=== PATIENT | female | born 1945 | race Caucasian/White ===

== ENCOUNTER 2018-05-27 09:42 | Inpatient (IN) | payer MEDICARE ==
[~2018-05-27] VITALS: Ht 175.3 cm; Wt 74.4 kg
[2018-05-27 10:41] LABS: CREATININE 0.9 mg/dL (0.5-1.5); POTASSIUM 4.7 mmol/L (3.5-5.1)
[2018-05-27 10:42] LABS: EOSINOPHILS % (AUTO) 4.3 % (0.0-8.0); HEMATOCRIT 26.6 % (36-48); LYMPHOCYTES % (AUTO) 27.8 % (21.0-51.0); MEAN CORPUSCULAR HEMOGLOBIN 21.3 pg (27.0-33.0); MEAN CORPUSCULAR HGB CONC 30.7 g/dL (32.0-36.0); MEAN CORPUSCULAR VOLUME 69.5 fL (79-99); MONOCYTES % (AUTO) 12.6 % (3.0-13.0); NEUTROPHILS % (AUTO) 54.3 % (40.0-77.0); PLATELET COUNT (AUTO) 621 K/uL (130-400); RED BLOOD CELL COUNT(AUTO) 3.83 MIL/uL (4.00-5.50); RED CELL DISTRIBUTION WIDTH 17.7 % (11.0-15.5); WHITE BLOOD COUNT (AUTO) 8.6 K/uL (4.8-10.8)
[2018-05-27 10:46] LABS: ALBUMIN 3.1 g/dL (3.5-5.0); BILIRUBIN,TOTAL 0.4 mg/dL (0.2-1.0); TOTAL PROTEIN, SERUM 6.9 g/dL (6.0-8.3)
[2018-05-27 11:13] LABS: B-TYPE NATRIURETIC PEPTIDE 461 pg/mL (0-100)
[2018-05-27] MEDS ORDERED: FUROSEMIDE 10 MG/ML 4ML VIAL ONE (12:06)
[2018-05-27] MEDS ORDERED: FUROSEMIDE 10 MG/ML 4ML VIAL IVP SCH (21:00)
[2018-05-27 21:03] VITALS: BP 127/61
[2018-05-27] MEDS ORDERED: AMLO5TAB7 PO (21:16)
[2018-05-27] MEDS ORDERED: GUAI-966 PO (21:16)
[2018-05-27] MEDS ORDERED: PARO25TA22 PO (21:16)
[2018-05-27] MEDS ORDERED: B12/1TAB PO (21:16)
[2018-05-27] MEDS ORDERED: AZIT250T9 PO (21:16)
[2018-05-27] MEDS ORDERED: FLUC100T8 PO (21:16)
[2018-05-27] MEDS ORDERED: NYST5ORA7 PO (21:16)
[2018-05-27] MEDS ORDERED: ASPI-1197 PO (21:16)
[2018-05-27] MEDS ORDERED: UBID30CA11 PO (21:16)
[2018-05-27 23:51] VITALS: BP 119/71
[2018-05-28 01:07] LABS: CREATINE KINASE, TOTAL 42 U/L (21-232); MYOGLOBIN 65 ng/mL (10-92); TROPONIN I < 0.04 ng/mL (0.00-0.06)
[2018-05-28 03:44] VITALS: BP 132/68
[2018-05-28 07:47] VITALS: BP 130/74
[2018-05-28 09:29] LABS: CREATINE KINASE, TOTAL 46 U/L (21-232); MYOGLOBIN 93 ng/mL (10-92); TROPONIN I < 0.04 ng/mL (0.00-0.06)
[2018-05-28] MEDS ORDERED: MAG HYDROX/AL HYDROX/SIMETH ES 30 ML SUSP UDCUP PO PRN (11:15)
[2018-05-28] MEDS ORDERED: MAGNESIUM HYDROXIDE 30 ML/UDCUP PO PRN (11:15)
[2018-05-28] MEDS ORDERED: FAMOTIDINE 20MG TAB 20 MG TAB PO SCH (11:15)
[2018-05-28 11:47] VITALS: BP 103/58
[2018-05-28 16:01] VITALS: BP 106/63
[2018-05-28 19:00] VITALS: BP 124/68
[2018-05-28] MEDS: FAMOTIDINE 20MG TAB 20 MG TAB PO SCH (20:15)
[2018-05-28 23:00] VITALS: BP 130/68
[2018-05-29 03:00] VITALS: BP 118/60
[2018-05-29 07:30] VITALS: BP 108/65
[2018-05-29] MEDS: FAMOTIDINE 20MG TAB 20 MG TAB PO SCH ×2 (08:28→20:46)
[2018-05-29] MEDS: FLUCONAZOLE 100 MG TAB PO SCH (08:28)
[2018-05-29] MEDS: ASPIRIN 81MG TAB.CHEW PO SCH (08:28)
[2018-05-29] MEDS: FUROSEMIDE 40 MG TABLET PO SCH (08:28)
[2018-05-29] MEDS: CARVEDILOL 3.125 MG TABLET PO SCH ×2 (08:32→20:46)
[2018-05-29] MEDS: PAXIL 25 MG PO SCH (08:35)
[2018-05-29] MEDS: LOSARTAN 50 MG TABLET PO SCH (09:00)
[2018-05-29] MEDS ORDERED: AZITHROMYCIN 250 MG TABLET PO SCH (09:00)
[2018-05-29] MEDS ORDERED: AMLODIPINE BESYLATE 5 MG TAB PO SCH (09:00)
[2018-05-29] MEDS: B6 PO SCH (09:00)
[2018-05-29] MEDS: B12 PO SCH (09:00)
[2018-05-29] MEDS: LEVOMEFOLATE CALCIUM PO SCH (09:00)
[2018-05-29] MEDS ORDERED: PAROXETINE HCL 25 MG TAB.SR.24H PO SCH (09:00)
[2018-05-29] MEDS: UBIDECARENONE 30 MG PO SCH (09:00)
[2018-05-29 11:28] VITALS: BP 96/58
[2018-05-29] MEDS: WARFARIN SODIUM 5 MG TAB PO SCH (15:49)
[2018-05-29 16:09] VITALS: BP 111/54
[2018-05-29 19:43] VITALS: BP 114/71
[2018-05-29 23:44] VITALS: BP 110/63
[2018-05-30] VITALS (7 sets, daily range): BP systolic 91–106; BP diastolic 45–63
[2018-05-30 04:08] LABS: INR 0.95 (0.85-1.15)
[2018-05-30 04:19] LABS: CREATININE 0.9 mg/dL (0.5-1.5); POTASSIUM 3.8 mmol/L (3.5-5.1)
[2018-05-30] MEDS: LEVOMEFOLATE CALCIUM PO SCH (09:00)
[2018-05-30] MEDS: UBIDECARENONE 30 MG PO SCH (09:00)
[2018-05-30] MEDS: PAXIL 25 MG PO SCH (09:00)
[2018-05-30] MEDS: LOSARTAN 50 MG TABLET PO SCH (09:00)
[2018-05-30] MEDS: B12 PO SCH (09:00)
[2018-05-30] MEDS: B6 PO SCH (09:00)
[2018-05-30] MEDS: CARVEDILOL 3.125 MG TABLET PO SCH ×2 (09:51→21:58)
[2018-05-30] MEDS ORDERED: REGADENOSON 0.4 MG/5 ML PF SYG IVP SCH (10:45)
[2018-05-30] MEDS: FLUCONAZOLE 100 MG TAB PO SCH (17:11)
[2018-05-30] MEDS: WARFARIN SODIUM 5 MG TAB PO SCH (17:11)
[2018-05-30] MEDS: FAMOTIDINE 20MG TAB 20 MG TAB PO SCH ×2 (17:11→19:05)
[2018-05-30] MEDS: FUROSEMIDE 40 MG TABLET PO SCH (17:12)
[2018-05-30] MEDS: ASPIRIN 81MG TAB.CHEW PO SCH (17:12)
[2018-05-31 03:24] VITALS: BP 100/48
[2018-05-31 03:47] LABS: INR 1.2 (0.85-1.15); PROTHROMBIN TIME 12.6 SEC (9.6-11.6)
[2018-05-31 03:48] LABS: POTASSIUM 4.8 mmol/L (3.5-5.1)
[2018-05-31 07:48] VITALS: BP 128/42
[2018-05-31] MEDS: PAXIL 25 MG PO SCH (09:00)
[2018-05-31] MEDS: B12 PO SCH (09:00)
[2018-05-31] MEDS: UBIDECARENONE 30 MG PO SCH (09:00)
[2018-05-31] MEDS: LEVOMEFOLATE CALCIUM PO SCH (09:00)
[2018-05-31] MEDS: B6 PO SCH (09:00)
[2018-05-31] MEDS: CARVEDILOL 3.125 MG TABLET PO SCH ×2 (09:02→21:14)
[2018-05-31] MEDS: ASPIRIN 81MG TAB.CHEW PO SCH (09:02)
[2018-05-31] MEDS: FLUCONAZOLE 100 MG TAB PO SCH (09:02)
[2018-05-31] MEDS: FAMOTIDINE 20MG TAB 20 MG TAB PO SCH ×2 (09:02→21:14)
[2018-05-31] MEDS: FUROSEMIDE 40 MG TABLET PO SCH (09:03)
[2018-05-31 11:42] VITALS: BP 119/73
[2018-05-31] MEDS: LOSARTAN 50 MG TABLET PO SCH (12:18)
[2018-05-31] MEDS: WARFARIN SODIUM 5 MG TAB PO SCH (16:04)
[2018-05-31 16:37] VITALS: BP 100/55
[2018-05-31 19:39] VITALS: BP 121/71
[2018-05-31 23:37] VITALS: BP 116/63
[2018-06-01 04:01] VITALS: BP 104/56
[2018-06-01 04:35] LABS: CREATININE 0.9 mg/dL (0.5-1.5); POTASSIUM 3.6 mmol/L (3.5-5.1)
[2018-06-01 04:44] LABS: INR 2.02 (0.85-1.15); PROTHROMBIN TIME 20.9 SEC (9.6-11.6)
[2018-06-01 07:37] VITALS: BP 97/51
[2018-06-01] MEDS: B6 PO SCH (09:00)
[2018-06-01] MEDS: B12 PO SCH (09:00)
[2018-06-01] MEDS: UBIDECARENONE 30 MG PO SCH (09:00)
[2018-06-01] MEDS: LEVOMEFOLATE CALCIUM PO SCH (09:00)
[2018-06-01] MEDS: FLUCONAZOLE 100 MG TAB PO SCH (09:21)
[2018-06-01] MEDS: CARVEDILOL 3.125 MG TABLET PO SCH (09:22)
[2018-06-01] MEDS: FAMOTIDINE 20MG TAB 20 MG TAB PO SCH (09:22)
[2018-06-01] MEDS: ASPIRIN 81MG TAB.CHEW PO SCH (09:22)
[2018-06-01] MEDS: FUROSEMIDE 40 MG TABLET PO SCH (09:22)
[2018-06-01] MEDS: LOSARTAN 50 MG TABLET PO SCH (09:23)
[2018-06-01] MEDS: PAXIL 25 MG PO SCH (09:28)
[2018-06-01 11:22] VITALS: BP 103/57
[2018-06-01 16:44] VITALS: BP 105/60
[2018-06-01] MEDS: WARFARIN SODIUM 5 MG TAB PO SCH (16:44)
== END 2018-06-01 18:05 | disposition home or self-care (01) | DRG 291 ==
LOC: EDH 09:42 → OBSVTOIN 12:30 → EDHIP 12:30 → 2AH 20:39
PROVIDERS: ADMIT Internal Medicine Critical Care Medicine; ATTEND Internal Medicine Critical Care Medicine
DX: I11.0 Hypertensive heart disease with heart failure (principal); J96.01 Acute respiratory failure with hypoxia; I50.23 Acute on chronic systolic (congestive) heart failure; I42.0 Dilated cardiomyopathy; I09.9 Rheumatic heart disease, unspecified; E78.5 Hyperlipidemia, unspecified; Z72.0 Tobacco use; D50.9 Iron deficiency anemia, unspecified; F41.8 Other specified anxiety disorders; Z79.01 Long term (current) use of anticoagulants; Z88.1 Allergy status to other antibiotic agents; Z91.048 Other nonmedicinal substance allergy status; Z98.84 Bariatric surgery status
CPT/HCPCS: 36415; 71046; 71250; 78452; 80048; 80053; 80061; 82550; 83874; 83880; 84443; 84484; 85025; 85610; 86850; 86900; 86901; 93017; 93306; 96374; A9500; J1940; J2785

== ENCOUNTER 2018-06-13 13:27 | Observation (INO) | payer MEDICARE ==
[~2018-06-13] VITALS: Ht 175.3 cm; Wt 76.7 kg
[~2018-06-13 13:27] MED LIST: B12/1TAB PO; GUAI-966 PO; NYST5ORA7 PO; PARO25TA22 PO; UBID30CA11 PO
[2018-06-13 16:02] LABS: BASOPHILS % (AUTO) 0.9 % (0.0-5.0); EOSINOPHILS % (AUTO) 1.4 % (0.0-8.0); LYMPHOCYTES % (AUTO) 20.5 % (21.0-51.0); MEAN CORPUSCULAR HEMOGLOBIN 21.7 pg (27.0-33.0); MEAN CORPUSCULAR HGB CONC 30.7 g/dL (32.0-36.0); MEAN CORPUSCULAR VOLUME 70.7 fL (79-99); MONOCYTES % (AUTO) 11.1 % (3.0-13.0); NEUTROPHILS % (AUTO) 66.1 % (40.0-77.0); NUCLEATED RED BLOOD CELLS 0.1 % (0.0-0.19); PLATELET COUNT (AUTO) 556 K/uL (130-400); RED BLOOD CELL COUNT(AUTO) 4.24 MIL/uL (4.00-5.50); RED CELL DISTRIBUTION WIDTH 17.7 % (11.0-15.5); WHITE BLOOD COUNT (AUTO) 8.4 K/uL (4.8-10.8)
[2018-06-13 17:58] LABS: CREATININE 0.8 mg/dL (0.5-1.5); POTASSIUM 3.7 mmol/L (3.5-5.1)
[2018-06-13 17:59] LABS: INR 1.96 (0.85-1.15); PARTIAL THROMBOPLASTIN TIME 36.2 SEC (26.3-35.5); PROTHROMBIN TIME 20.3 SEC (9.6-11.6)
[2018-06-13 18:03] LABS: ALBUMIN 3.2 g/dL (3.5-5.0); BILIRUBIN,TOTAL 0.2 mg/dL (0.2-1.0); TOTAL PROTEIN, SERUM 6.8 g/dL (6.0-8.3)
[2018-06-13 19:00] VITALS: BP 99/40
[2018-06-13] MEDS ORDERED: CARV3.12 PO (22:23)
[2018-06-13] MEDS ORDERED: WARF2.5T85 PO (22:23)
[2018-06-13] MEDS ORDERED: FURO40TA5 PO (22:23)
[2018-06-13] MEDS ORDERED: SACU1TAB PO (22:23)
[2018-06-13 23:30] VITALS: BP 111/60
[2018-06-14 03:47] VITALS: BP 96/46
[2018-06-14 08:00] VITALS: BP 116/61
[2018-06-14] MEDS: FUROSEMIDE 40 MG TABLET PO SCH (08:50)
[2018-06-14] MEDS: CARVEDILOL 3.125 MG TABLET PO SCH ×2 (08:53→21:03)
[2018-06-14] MEDS: WARFARIN SODIUM 2.5 MG TAB PO SCH (08:55)
[2018-06-14] MEDS: PAXIL 25 MG PO SCH (09:00)
[2018-06-14] MEDS ORDERED: PAROXETINE HCL 25 MG TAB.SR.24H PO SCH (09:00)
[2018-06-14 12:00] VITALS: BP 96/43
[2018-06-14 16:00] VITALS: BP 118/54
[2018-06-14 20:00] VITALS: BP 103/58
[2018-06-15 00:37] VITALS: BP 97/46
[2018-06-15 04:13] VITALS: BP 105/57
[2018-06-15 08:22] VITALS: BP 123/61
[2018-06-15] MEDS: PAXIL 25 MG PO SCH (09:00)
[2018-06-15] MEDS: FUROSEMIDE 40 MG TABLET PO SCH (09:15)
[2018-06-15] MEDS: WARFARIN SODIUM 2.5 MG TAB PO SCH (09:16)
[2018-06-15] MEDS: CARVEDILOL 3.125 MG TABLET PO SCH (09:16)
[2018-06-16 08:26] VITALS: BP 121/56
== END 2018-06-15 12:05 | disposition home or self-care (01) ==
LOC: EDH 13:27 → EDHIP 16:40 → 3AH 18:24
PROVIDERS: ADMIT Internal Medicine Critical Care Medicine; ATTEND Internal Medicine Critical Care Medicine
DX: R55 Syncope and collapse (principal); I50.22 Chronic systolic (congestive) heart failure; I42.9 Cardiomyopathy, unspecified; D50.9 Iron deficiency anemia, unspecified; I48.2 Chronic atrial fibrillation; G47.10 Hypersomnia, unspecified; Z79.01 Long term (current) use of anticoagulants; Z90.710 Acquired absence of both cervix and uterus; Z98.84 Bariatric surgery status
CPT/HCPCS: 36415; 71045; 80053; 82270; 82550; 84484; 85025; 85610; 85730; 93005; 99285; G0378 ×43

== ENCOUNTER → 2018-09-24 | Outpatient (CLI) | payer MEDICARE ==
[~2018-09-24] MED LIST changes: +CARV3.12 PO; +FURO40TA5 PO; +SACU1TAB PO; +WARF2.5T85 PO
== END | disposition home or self-care (01) ==
LOC: SHCH 08:12
PROVIDERS: ATTEND Internal Medicine Cardiovascular Disease
DX: I34.0 Nonrheumatic mitral (valve) insufficiency (principal); I42.9 Cardiomyopathy, unspecified
CPT/HCPCS: 93306

== ENCOUNTER 2018-10-03 20:38 | Emergency (ER) | payer MEDICARE ==
[2018-10-03 21:25] LABS: BASOPHILS % (AUTO) 1.2 % (0.0-5.0); EOSINOPHILS % (AUTO) 2.8 % (0.0-8.0); HEMATOCRIT 41.8 % (36-48); LYMPHOCYTES % (AUTO) 14.7 % (21.0-51.0); MEAN CORPUSCULAR HEMOGLOBIN 29.2 pg (27.0-33.0); MEAN CORPUSCULAR VOLUME 88.6 fL (79-99); MONOCYTES % (AUTO) 11.3 % (3.0-13.0); PLATELET COUNT (AUTO) 371 K/uL (130-400); RED BLOOD CELL COUNT(AUTO) 4.72 MIL/uL (4.00-5.50); RED CELL DISTRIBUTION WIDTH 13.6 % (11.0-15.5); WHITE BLOOD COUNT (AUTO) 10.6 K/uL (4.8-10.8)
[2018-10-03] MEDS ORDERED: ONDANSETRON HCL 4 MG/2 ML VIAL ONE (21:29)
[2018-10-03] MEDS ORDERED: SODIUM CHLORIDE 0.9% 1000ML 1,000 ML IV ONE (21:29)
[2018-10-03] MEDS ORDERED: KETOROLAC TROMETHAMINE 30MG/ML ONE (21:30)
[2018-10-03 21:34] LABS: CARBON DIOXIDE 27 mmol/L (21-32); CHLORIDE 103 mmol/L (101-111); GLOMERULAR FILTR. RATE CALC 58 mL/min (>60); GLUCOSE,RANDOM 115 mg/dL (70-105); POTASSIUM 4.1 mmol/L (3.5-5.1); SODIUM SERUM 140 mmol/L (136-145); UREA NITROGEN, BLOOD 24 mg/dL (7-18)
[2018-10-03 21:38] LABS: ALANINE AMINOTRANSFERASE 22 U/L (12-78); ALBUMIN 3.5 g/dL (3.5-5.0); ASPARTATE AMINOTRANSFERASE 26 U/L (10-37); BILIRUBIN,DIRECT < 0.1 mg/dL (0.0-0.3); BILIRUBIN,TOTAL 0.2 mg/dL (0.2-1.0); CREATINE KINASE, TOTAL 59 U/L (21-232); TOTAL PROTEIN, SERUM 7.6 g/dL (6.0-8.3)
[2018-10-03] MEDS ORDERED: DEXAMETHASONE SOD PHOSPHATE 10MG/ML 1ML VIAL ONE (22:32)
[2018-10-03] MEDS ORDERED: DIAZEPAM 5 MG TABLET ONE (22:33)
[2018-10-03 22:48] LABS: APPEARANCE,URINE Turbid (CLEAR); BILIRUBIN,URINE Negative (NEGATIVE); COLOR,URINE Yellow (YELLOW); GLUCOSE, URINE (UA) Negative (NEGATIVE); KETONES,URINE Trace mg/dL (NEGATIVE); LEUKOCYTE ESTERASE ,URINE Negative (NEGATIVE); NITRATE,URINE Negative (NEGATIVE); OCCULT BLOOD,URINE Nonhemolyzed Trace (NEGATIVE); PH,URINE 6.5 (5.0-8.0); PROTEIN,URINE Negative (NEGATIVE); UROBILINOGEN,URINE 0.2 mg/dL (0.2-1.0)
[2018-10-03 22:58] LABS: BACTERIA,URINE None Seen /HPF (None Seen); SQUAMOUS EPITHELIAL CELL,UR Rare /HPF (0-2); WBC,URINE None Seen /HPF (0-1)
== END 2018-10-03 23:39 | disposition home or self-care (01) ==
LOC: EDH 20:38
DX: J10.1 Influenza due to other identified influenza virus with other respiratory manifestations (principal); R42 Dizziness and giddiness; R51 Headache; M54.2 Cervicalgia; I10 Essential (primary) hypertension; Z90.49 Acquired absence of other specified parts of digestive tract; Z90.710 Acquired absence of both cervix and uterus; Z88.2 Allergy status to sulfonamides; Z91.048 Other nonmedicinal substance allergy status
CPT/HCPCS: 36415; 70450; 71045; 72125; 80048; 80076; 81001; 82550; 84484; 85025; 87804 ×2; 93005; 96374; 96375; 99284; J1100; J1885; J2405; J7030

== ENCOUNTER 2018-10-30 05:50 | Observation (INO) | payer MEDICARE ==
[2018-10-28 13:18] LABS: BASOPHILS % (AUTO) 1.2 % (0.0-5.0); EOSINOPHILS % (AUTO) 4.4 % (0.0-8.0); HEMATOCRIT 40.4 % (36-48); LYMPHOCYTES % (AUTO) 30.4 % (21.0-51.0); MEAN CORPUSCULAR HEMOGLOBIN 30.2 pg (27.0-33.0); MEAN CORPUSCULAR HGB CONC 32.7 g/dL (32.0-36.0); MEAN CORPUSCULAR VOLUME 92.2 fL (79-99); PLATELET COUNT (AUTO) 391 K/uL (130-400); RED BLOOD CELL COUNT(AUTO) 4.38 MIL/uL (4.00-5.50); RED CELL DISTRIBUTION WIDTH 14.5 % (11.0-15.5); WHITE BLOOD COUNT (AUTO) 4.9 K/uL (4.8-10.8)
[2018-10-28 13:37] LABS: INR 1.53 (0.85-1.15); PARTIAL THROMBOPLASTIN TIME 35.4 SEC (26.3-35.5); PROTHROMBIN TIME 15.9 SEC (9.6-11.6)
[2018-10-28 13:38] VITALS: BP 137/69
[2018-10-28 13:48] LABS: CREATININE 0.9 mg/dL (0.5-1.5); POTASSIUM 4.6 mmol/L (3.5-5.1)
--- NOTE | 2018-10-29 12:28 | NUR ---
NOTE REPORTED PT/INR TO CECI MURGUIA TO PROCEED NO ORDERS TO REPEAT
[2018-10-30] VITALS (11 sets, daily range): BP systolic 73–139; BP diastolic 39–71
[~2018-10-30] VITALS: Ht 172.7 cm; Wt 85.4 kg
[~2018-10-30 05:50] MED LIST changes: -B12/1TAB PO; -CARV3.12 PO; -GUAI-966 PO; +LOSA25TA41 PO; -NYST5ORA7 PO; +PROG100C6 PO; -UBID30CA11 PO; +WARF-57 PO; -WARF2.5T85 PO
[2018-10-30] MEDS ORDERED: SODIUM CHLORIDE 0.9% 1000ML 1,000 ML IV ONE (06:13)
--- NOTE | 2018-10-30 06:54 | NUR ---
PROCEDURE PT HERE FOR PROCEDURE. DENIES ANY DISCOMFORTS AT THIS TIME. LIFEVEST IN PLACE.
--- NOTE | 2018-10-30 07:17 | NUR ---
SKIN RAISED SMALL BUMPS, REDNESS NOTED TO LEFT NECK. PT STATES SHE RECEIVED FROM STRAP FROM [facility]. NO DRAINAGE NOTED.
[2018-10-30] MEDS ORDERED: SODIUM CHLORIDE 0.9% 1000ML 1,000 ML IV SCH (08:00)
[2018-10-30] MEDS ORDERED: CEFAZOLIN SODIUM 1 GM VIAL IVP ONE (08:00)
[2018-10-30] MEDS ORDERED: LIDOCAINE HCL 1% MDV 50ML VIAL ONE (09:08)
[2018-10-30] MEDS ORDERED: BUPIVACAINE/PF 0.25% 30ML VIAL IJ ONE (09:08)
[2018-10-30] MEDS ORDERED: CEFAZOLIN SODIUM 1 GM VIAL ONE (09:08)
[2018-10-30] MEDS ORDERED: MIDAZOLAM HCL 1 MG/ML 2ML VIAL ONE ×4 (09:26→10:19)
[2018-10-30] MEDS ORDERED: MEPERIDINE-PF 25 MG/ML SYG ONE ×4 (09:26→10:19)
--- NOTE | 2018-10-30 09:46 | NUR ---
PROCEDURE PT TAKEN TO PROCEDURE VIA BED BY SPLICING MACHINE OPERATOR STAFF STEPHANIE LR. LIFEVEST IN PLACE
[2018-10-30] MEDS ORDERED: IOHEXOL-350 50ML VIAL IV ONE (10:21)
[2018-10-30] MEDS ORDERED: AMIODARONE HCL 50 MG/ML 3 ML VIAL ONE (11:02)
[2018-10-30] MEDS ORDERED: ACETAMINOPHEN-CODEINE 300/30MG TAB PO PRN ×2 (11:45)
[2018-10-30] MEDS ORDERED: ACETAMINOPHEN 325 MG TAB PO PRN (11:45)
--- NOTE | 2018-10-30 12:10 | NUR ---
ARRIVAL TO ROOM 229 PT IS AAOX3, AROUSABLE TO NAME AND ANSWERS QUESTIONS. NOTED LEFT UPPER CHEST DRESSING IN PLACE, CLEAN DRY AND INTACT. LEFT ARM SLING IN PLACE. BEDREST IN PROGRESS. HOB UP AT 30 DEGREES. NO VISIBLE SIGNS OF DISTRESS NOTED, BREATHING PATTERN IS EVEN AND UNLABORED. CALL LIGHT WITHIN REACH.
--- NOTE | 2018-10-30 13:00 | NUR ---
DR COLE AWARE OF ADMISSION TO ROOM 229
--- NOTE | 2018-10-30 14:00 | NUR ---
HR VIA TELE PERSONNEL OFFICER A-PACED 68.
--- NOTE | 2018-10-30 14:00 | NUR ---
STATUS PT IS AAOX4, RESTING IN BED. LEFT UPPER CHEST DRESSING REMAINS CLEAN DRY AND INTACT. NO COMPLAINTS. FAMILY IS AT BEDSIDE.
--- NOTE | 2018-10-30 16:00 | NUR ---
UP TO RESTROOM WITH ASSISTANCE TOLERATED WELL NO COMPLAINTS, BACK TO BED CALL LIGHT WITHIN REACH.
[2018-10-30] MEDS ORDERED: WARFARIN SODIUM 5 MG TAB PO SCH (17:00)
--- NOTE | 2018-10-30 21:00 | NUR ---
PT IS STABLE. DRESSING TO LEFT SIDE OF CHEST. SLING IN PLACE. AAOX3. PERRLA. NO PAIN STATED BUT DOES HAVE MINIMAL SORENESS TO AREA. STATED FEELING ITCHY IN HER NECK AREA DUE TO SLING AND ALSO LIFEVEST. APPLIED CREAM TO REDUCE DISCOMFORT. APPLIED HEATING PADS TO DRESSING SITE.
[2018-10-31 07:00] VITALS: BP 132/73
[2018-10-31 07:02] LABS: BASOPHILS % (AUTO) 0.9 % (0.0-5.0); EOSINOPHILS % (AUTO) 7.5 % (0.0-8.0); HEMATOCRIT 39.6 % (36-48); LYMPHOCYTES % (AUTO) 25.6 % (21.0-51.0); MEAN CORPUSCULAR HEMOGLOBIN 30.2 pg (27.0-33.0); MEAN CORPUSCULAR HGB CONC 33.2 g/dL (32.0-36.0); MEAN CORPUSCULAR VOLUME 90.9 fL (79-99); MONOCYTES % (AUTO) 13.6 % (3.0-13.0); NEUTROPHILS % (AUTO) 52.4 % (40.0-77.0); PLATELET COUNT (AUTO) 291 K/uL (130-400); RED BLOOD CELL COUNT(AUTO) 4.36 MIL/uL (4.00-5.50); RED CELL DISTRIBUTION WIDTH 14.2 % (11.0-15.5); WHITE BLOOD COUNT (AUTO) 5.8 K/uL (4.8-10.8)
[2018-10-31] MEDS ORDERED: CARV3.12 PO (07:07)
[2018-10-31 07:14] LABS: CREATININE 0.8 mg/dL (0.5-1.5); POTASSIUM 4.7 mmol/L (3.5-5.1)
[2018-10-31] MEDS ORDERED: PAROXETINE HCL 25 MG TAB.SR.24H PO SCH (09:00)
[2018-10-31] MEDS ORDERED: **HM** ENTRESTO 24-26MG PO SCH (09:00)
[2018-10-31] MEDS ORDERED: LOSARTAN 50 MG TABLET PO SCH (09:00)
[2018-10-31] MEDS ORDERED: FUROSEMIDE 40 MG TABLET PO SCH (09:00)
[2018-10-31] MEDS ORDERED: PAXIL 25 MG PO SCH (09:00)
--- NOTE | 2018-10-31 10:22 | NUR ---
REPORTED CHEST XRAY RESULT TO DR. ESPARZA. FAXED COPY OF RESULTS TO [facility] OFFICE.
--- NOTE | 2018-10-31 12:18 | NUR ---
DISCHARGE INSTRUCTIONS/INFORMATION GIVEN TO PATIENT. NEW PRESCRIPTION FOR COREG WAS HANDED TO HER. TEACH BACK METHOD USED TO EDUCATE PATIENT ON DIET, ACTIVITY RESTRICTIONS, USE OF SLING, CHANGES TO MEDICATIONS, AND F/U APPOINTMENT. PATIENT AND AT BEDSIDE BOTH VERBALIZED UNDERSTANDING. PIV REMOVED. TELE BATOOL REMOVED AND RETURNED. AICD TEMPORARY CARD AND BOOKLET GIVEN TO PATIENT. ALL BELONGINGS WERE PACKED.
[2018-10-31] MEDS ORDERED: PROGESTERONE 100 MG PO SCH (21:00)
== END 2018-10-31 12:43 | disposition home or self-care (01) ==
LOC: DAH 05:50 → DAHIP 05:51 → 2AH 12:17
PROVIDERS: ADMIT Internal Medicine; ATTEND Internal Medicine
DX: I42.0 Dilated cardiomyopathy (principal); I73.9 Peripheral vascular disease, unspecified; I50.22 Chronic systolic (congestive) heart failure; Z79.899 Other long term (current) drug therapy; Z90.710 Acquired absence of both cervix and uterus; Z88.2 Allergy status to sulfonamides
CPT/HCPCS: 33249; 36415 ×2; 71045; 80048 ×2; 85025 ×2; 85610; 85730; 93005; A4606; C1721; C1769; C1895 ×2; G0378 ×31; J0282; J0690; J2175 ×4; J2250 ×4; J3490 ×2; J7030; Q9967; 99156; 99157

== ENCOUNTER → 2022-11-16 | Outpatient (CLI) | payer MEDICARE ==
[~2022-11-16] MED LIST changes: +AMIO200T68 PO; +ASPI-556 PO; +CARV3.12 PO; -LOSA25TA41 PO; -PROG100C6 PO; -SACU1TAB PO; +SACU1TAB4 PO; -WARF-57 PO
== END | disposition home or self-care (01) ==
LOC: RAH 11:02
PROVIDERS: ATTEND Internal Medicine
DX: R20.0 Anesthesia of skin (principal)
CPT/HCPCS: 73630

== ENCOUNTER 2022-12-24 02:16 | Emergency (ER) | payer MEDICARE ==
[~2022-12-24] VITALS: Ht 175.3 cm; Wt 78.0 kg
[2022-12-24 03:20] LABS: BASOPHILS % (AUTO) 0.6 % (0.0-5.0); EOSINOPHILS % (AUTO) 4.3 % (0.0-8.0); HEMATOCRIT 38.1 % (36-48); LYMPHOCYTES % (AUTO) 30.8 % (21.0-51.0); MEAN CORPUSCULAR HEMOGLOBIN 30.1 pg (27.0-33.0); MEAN CORPUSCULAR VOLUME 94.1 fL (79-99); MONOCYTES % (AUTO) 16.2 % (3.0-13.0); NEUTROPHILS % (AUTO) 47.8 % (40.0-77.0); PLATELET COUNT (AUTO) 335 K/uL (130-400); RED BLOOD CELL COUNT(AUTO) 4.05 MIL/uL (4.00-5.50); RED CELL DISTRIBUTION WIDTH 14.4 % (11.0-15.5); WHITE BLOOD COUNT (AUTO) 6.3 K/uL (4.8-10.8)
[2022-12-24 03:24] LABS: APPEARANCE,URINE CLEAR (CLEAR); BILIRUBIN,URINE NEGATIVE (NEGATIVE); COLOR,URINE LIGHT-YELLOW (YELLOW); GLUCOSE, URINE (UA) NEGATIVE (NEGATIVE); KETONES,URINE NEGATIVE (NEGATIVE); LEUKOCYTE ESTERASE ,URINE 75 Leu/uL (NEGATIVE); NITRATE,URINE NEGATIVE (NEGATIVE); OCCULT BLOOD,URINE NEGATIVE (NEGATIVE); PH,URINE 5.5 (5.0-8.0); PROTEIN,URINE NEGATIVE (NEGATIVE); UROBILINOGEN,URINE 0.2 mg/dL (0.2-1.0)
[2022-12-24 03:26] LABS: CREATININE 0.8 mg/dL (0.5-1.5); POTASSIUM 4.8 mmol/L (3.5-5.1)
[2022-12-24 03:31] LABS: ALBUMIN 2.9 g/dL (3.5-5.0); TOTAL PROTEIN, SERUM 6.4 g/dL (6.0-8.3)
[2022-12-24 03:39] LABS: BACTERIA,URINE RARE /HPF (None Seen); MUCUS,URINE RARE LPF (None Seen); RBC,URINE 0-1 /HPF (0-1); SQUAMOUS EPITHELIAL CELL,UR RARE /HPF (0-2)
[2022-12-24] MEDS ORDERED: IOHEXOL 350 MG/ML 100ML INFUS..BTL IV ONE (03:55)
[2022-12-24 04:09] LABS: B-TYPE NATRIURETIC PEPTIDE 105 pg/mL (0-100)
[2022-12-24 04:30] LABS: INR 0.99 (0.85-1.15); PROTHROMBIN TIME 10.8 SEC (9.6-11.6)
[2022-12-24 04:32] LABS: PARTIAL THROMBOPLASTIN TIME 31.1 SEC (26.3-35.5)
[2022-12-24 05:36] VITALS: BP 116/62
== END 2022-12-24 05:54 | disposition home or self-care (01) ==
LOC: EDH 02:16
DX: S00.531A Contusion of lip, initial encounter (principal); Z79.82 Long term (current) use of aspirin; Z79.899 Other long term (current) drug therapy; Z98.890 Other specified postprocedural states; Z90.710 Acquired absence of both cervix and uterus; Z90.49 Acquired absence of other specified parts of digestive tract; Z95.810 Presence of automatic (implantable) cardiac defibrillator; Z88.2 Allergy status to sulfonamides; Z88.8 Allergy status to other drugs, medicaments and biological substances; W18.39XA Other fall on same level, initial encounter; Y93.89 Activity, other specified; Y92.89 Other specified places as the place of occurrence of the external cause; Y99.8 Other external cause status
CPT/HCPCS: 99285; 70450; 84484; 80053; 83880; 85025; 85610; 85730; 87088; 81001; 36415; 72125; 71270; 74178; 93005; Q9967

== ENCOUNTER → 2023-01-31 | Outpatient (CLI) | payer MEDICARE ==
[2023-01-31 12:13] LABS: APPEARANCE,URINE CLEAR (CLEAR); BILIRUBIN,URINE NEGATIVE (NEGATIVE); COLOR,URINE COLORLESS (YELLOW); GLUCOSE, URINE (UA) NEGATIVE (NEGATIVE); KETONES,URINE NEGATIVE (NEGATIVE); LEUKOCYTE ESTERASE ,URINE 25 Leu/uL (NEGATIVE); NITRATE,URINE NEGATIVE (NEGATIVE); OCCULT BLOOD,URINE NEGATIVE (NEGATIVE); PROTEIN,URINE NEGATIVE (NEGATIVE); UROBILINOGEN,URINE 0.2 mg/dL (0.2-1.0)
[2023-01-31 12:39] LABS: MUCUS,URINE RARE LPF (None Seen); RBC,URINE 0-1 /HPF (0-1)
== END | disposition home or self-care (01) ==
LOC: LAB 11:19
PROVIDERS: ATTEND Internal Medicine Cardiovascular Disease
DX: N39.0 Urinary tract infection, site not specified (principal)
CPT/HCPCS: 81001

== ENCOUNTER → 2023-04-29 | Outpatient (CLI) | payer MEDICARE ==
[~2023-04-29] MED LIST changes: +IOHEXOL 350 MG/ML 100ML INFUS..BTL IV ONE
== END | disposition home or self-care (01) ==
LOC: RAH 07:35
PROVIDERS: ATTEND Urology
DX: R31.9 Hematuria, unspecified (principal)
CPT/HCPCS: 74178; Q9967

== ENCOUNTER → 2023-06-25 | Outpatient (CLI) | payer MEDICARE ==
[~2023-06-25] MED LIST changes: -IOHEXOL 350 MG/ML 100ML INFUS..BTL IV ONE
[2023-06-25 12:16] LABS: BASOPHILS # (AUTO) 0.05 K/uL (0.00-0.20); BASOPHILS % (AUTO) 0.8 % (0.0-5.0); EOSINOPHILS # (AUTO) 0.18 K/uL (0.00-0.70); EOSINOPHILS % (AUTO) 2.9 % (0.0-8.0); HEMATOCRIT 40.5 % (36-48); IMMATURE GRANULOCYTE ABSOLUTE 0.02 K/uL (0-1); LYMPHOCYTES # (AUTO) 1.8 K/uL (1.0-4.8); LYMPHOCYTES % (AUTO) 28.3 % (21.0-51.0); MEAN CORPUSCULAR HEMOGLOBIN 30.5 pg (27.0-33.0); MEAN CORPUSCULAR HGB CONC 31.1 g/dL (32.0-36.0); MEAN CORPUSCULAR VOLUME 98.1 fL (79-99); MONOCYTES # (AUTO) 0.7 K/uL (0.1-1.0); MONOCYTES % (AUTO) 11.3 % (3.0-13.0); NEUTROPHILS # (AUTO) 3.5 K/uL (1.8-7.7); NEUTROPHILS % (AUTO) 56.4 % (40.0-77.0); PLATELET COUNT (AUTO) 402 K/uL (130-400); RED BLOOD CELL COUNT(AUTO) 4.13 MIL/uL (4.00-5.50); RED CELL DISTRIBUTION WIDTH 14.7 % (11.0-15.5); WHITE BLOOD COUNT (AUTO) 6.2 K/uL (4.8-10.8)
[2023-06-25 12:40] LABS: ALBUMIN 3.5 g/dL (3.5-5.0); BILIRUBIN,TOTAL 0.3 mg/dL (0.2-1.0); POTASSIUM 5.2 mmol/L (3.5-5.1); THYROID STIMULATING HORMONE 2.01 uIU/mL (0.36-3.74)
== END | disposition home or self-care (01) ==
LOC: LAB 09:40
PROVIDERS: ATTEND Internal Medicine Cardiovascular Disease
DX: I42.0 Dilated cardiomyopathy (principal); I10 Essential (primary) hypertension; Z79.899 Other long term (current) drug therapy
CPT/HCPCS: 36415; 80053; 83880; 84443; 85025

== ENCOUNTER → 2023-08-28 | Outpatient (CLI) | payer MEDICARE | END | disposition home or self-care (01) | LOC: RESP 10:17 | PROVIDERS: ATTEND Internal Medicine Cardiovascular Disease | DX: R06.02 Shortness of breath (principal) | CPT/HCPCS: 94010; 94729 ==

== ENCOUNTER → 2023-09-12 | Outpatient (CLI) | payer MEDICARE | END | disposition home or self-care (01) | LOC: RAH 14:10 | PROVIDERS: ATTEND Family Medicine | DX: G31.9 Degenerative disease of nervous system, unspecified (principal); R42 Dizziness and giddiness | CPT/HCPCS: 70450 ==

== ENCOUNTER → 2024-01-01 | Outpatient (CLI) | payer MEDICARE | END | disposition home or self-care (01) | LOC: SHCH 09:20 | PROVIDERS: ATTEND Internal Medicine Cardiovascular Disease | DX: I08.3 Combined rheumatic disorders of mitral, aortic and tricuspid valves (principal); I11.9 Hypertensive heart disease without heart failure; I42.9 Cardiomyopathy, unspecified; Z95.0 Presence of cardiac pacemaker | CPT/HCPCS: 93306 ==